=== PATIENT | female | born 1990 | race Caucasian/White ===

== ENCOUNTER 2023-12-07 14:27 | Inpatient (IN) | payer OTHER, SELFPAY ==
[2023-12-07] VITALS (33 sets, daily range): BP systolic 109–156; BP diastolic 54–108; PULSE 73–118; RESP 14–18; TEMP 36.7–37; O2SAT 91–100; BMI 31.6
--- NOTE | 2023-12-07 | PLAC_PTH ---
PATIENT: DASIA HERNANDEZ LOC: WP U#:[id number] AGE/SX: 33/F ROOM: WP009 RE12/07/[address]: Dr. Lyudmila Baltazar DO : 1990 BED: 1 DIS: 12/09/2023 SPEC #: [id number] RECD: 12/07/23 23:38 STATUS: ALYX HUMPHREY #: [id number] ALBERTO: 12/07/23 00:[address]: Lyudmila Baltazar DEPT: SURGICAL PATHOLOGY RECD BY: Julia Ray Tissues: Placenta, NOS Procedures: Surgery Specimen Level V HEADER OPERATION: section PRE-OP DIAGNOSIS: Primary section TISSUE SUBMITTED: Placenta MICROSCOPIC DIAGNOSIS Placenta: Placental disc - third trimester placenta (455 gm). Membranes - no pathologic diagnosis. Umbilical cord - three blood vessels and no pathologic diagnosis. SJ: 12/10/2023 MICROSCOPIC DESCRIPTION Slides are reviewed. GROSS DESCRIPTION SPECIMEN: PLACENTA / CLINICAL INFORMATION: A. Weight: 3.105 kg B. Gestational Age:41 weeks C. Sex: Male PLACENTAL WEIGHT (POST FIXATION): 455 gm PLACENTAL DIMENSIONS: 20.0 x 18.0 x 2.5 cm PLACENTAL SHAPE: Usual ovoid PLACENTAL WEIGHT FOR GESTATIONAL AGE: Within 10-99th percentile MEMBRANES - Present A. Insertion: Marginal B. Site of rupture from edge: 8.0 cm from edge of placental disc C. Color of membrane: Aguilar-clemente D. Abnormalities: None UMBILICAL CORD - Present A. Color: Aguilar-clemente B. Insertion: Paracentral C. Length: 38.0 cm D. Diameter: 1.2 cm E. Number of vessels: Three F. Abnormalities: None PLACENTAL DISC - Present A. Color of surface: Aguilar-clemente B. surface abnormalities: None C. Maternal cotyledons: Intact with minimal tears D. Attached retro placental clot: No clot E. Cut surface: Dark red and spongy F. Lesions: None G. Separate clot: Absent SECTIONS SUBMITTED: 6 cassettes 1. Membrane roll 2. Cord, maternal end 3. Cord, end 4. Placental disc, and maternal surfaces 5. Placental disc, and maternal surfaces 6. Placental disc, and maternal surfaces SJ/mr 12/09/2023 TC:4 CPT: 73978
[2023-12-07 14:21] LABS: ROM Internal Control Test YES-OK TO RESULT pt. (Internal QC)
[2023-12-07 14:22] LABS: ROM Patient Test POSITIVE (Negative)
[2023-12-07 14:23] LABS: Record Kit Lot#, ROM+ K1866
[2023-12-07] MEDS: Lactated Ringers 1,000 ML 50 ML IV (15:10)
[2023-12-07 15:36] LABS: Absolute Lymphocyte Count 2.52 X10^3/uL (0.83-4.51); Absolute Neutrophil Count 11.3 X10^3/uL (2.0-7.7); Basophil# 0.05 X10^3/uL; Basophil% 0.3 % (0-1); Eosinophil# 0.04 X10^3/uL; Eosinophils% 0.3 % (0-5); Hematocrit 39.5 % (37-47); Hemoglobin 13.2 g/dL (12.0-15.0); Lymphocyte # 2.52 X10^3/ul (0.83-4.51); Lymphocyte % 16.8 % (19-41); Mean Corp Hgb Conc 33.4 g/dL (32-36); Mean Corpuscular Hgb 30.3 pg (27.0-32.0); Mean Corpuscular Volume 90.6 fL (81-99); Mean Platelet Vol. 11.4 fl (6.2-12.0); Monocyte# 1.07 X10^3/uL; Monocyte% 7.1 % (0-10); NRBC Flagged by Analyzer 0 % (0-5); Neutrophil # 11.27 X10^3/uL (2.7-7.7); Platelet Count 261 K/mm3 (150-450); RBC Distribution Width CV 11.9 % (11.6-14.6); RBC Distribution Width SD 39.5 fl (35.1-43.9); Red Blood Count 4.36 M/mm3 (4.2-5.4)
[2023-12-07 15:44] LABS: Protein, Urine (Random) 6.6 mg/dL (<11.9); Protein:Creat Ratio 116 mg/g CRE (0-200)
[2023-12-07 15:46] LABS: AST(SGOT) 23 U/L (15-37); Alanine Aminotransfer ALT/SGPT 19 U/L (13-56); Creatinine, Serum 0.74 mg/dL (0.55-1.02); EST Glomerular Filtration Rate 97 mL/min (>60); Est Glom Filt Rate - Afr Amer 117 mL/min (>60); Estimated Creatinine Clearance 126.83 ml/min; Uric Acid 5.1 mg/dL (2.6-6.0)
[2023-12-07 16:07] LABS: Syphilis Antibodies Non-reactive
[2023-12-07] MEDS: Oxytocin 15 Units/NS 250ml 15 UNITS/250 ML IV.SOLN 2 UNITS IV (16:53)
[2023-12-07] MEDS: LACTATED RINGERS 500 ML 999 ML IV ×2 (17:10→18:20)
--- NOTE | 2023-12-07 17:23 | HP.PCM.OB_ITS ---
HPI - General General Date of Admission: 12/07/23 Date of Service: 12/07/23 Chief Complaint: SROM HPI Narrative DASIA HERNANDEZ, is a 33 F who presents with SROM. She ruptured for clear fluid at home around 9 AM today. Starting having irregular ctx's once she arrived to L&D. No bleeding. +FM. [facility] Medical History (Updated 12/07/23 @ 17:[address] Lyudmila Baltazar, DO) Asthma Home Medications ?Medication ?Instructions ?Recorded ?Last Taken ?Type calcium 250 mg tablet mg PO supplement 12/07/23 12/07/23 History docosahexaenoic acid PO vitamin 12/07/23 12/07/23 History famotidine 20 mg tablet (Pepcid) 20 mg PO DAILY heartburn 12/07/23 Unknown History ferrous sulfate 325 mg (65 mg 325 mg PO .daily iron 12/07/23 12/07/23 History iron) tablet (Iron (ferrous sulfate)) Allergy/AdvReac Type Severity Reaction Status Date / Time aspirin Allergy Severe Anaphylaxis Verified 12/07/23 14:31 Social History Smoking Status: Never smoker History Elective abortions Hx Para 0 Spontaneous abortions Hx # Term Pregnancies Ectopic pregnancies Hx # Pregnancies Multiple births # of living children NST FHR Rate Baby A Baseline: 140 Variability:: Moderate Accelerations:: 15 x 15 Decelerations:: None NST Reactive:: Yes FHR Category:: Category I Uterine Activity:: irregular Vital Signs Vital Signs Vital Signs: 12/07/23 13:49 12/07/23 13:49 12/07/23 14:04 Pulse Rate 77 Blood Pressure 151/73 H 156/82 H BP Systolic 151 156 BP Diastolic 73 82 12/07/23 14:04 12/07/23 14:20 12/07/23 14:20 Pulse Rate 93 76 Blood Pressure 148/76 H BP Systolic 148 BP Diastolic 76 12/07/23 16:46 12/07/23 16:46 Pulse Rate 96 Blood Pressure 154/84 H BP Systolic 154 BP Diastolic 84 Weight Weight: 202 lb Body Mass Index (BMI) 31.6 Labs Labs Labs: Blood Type O POSITIVE Antibody Screen NEGATIVE Hct 39.5 % (37-47) Hgb 13.2 g/dL (12.0-15.0) Syphilis Total Ab Non-reactive Assessment & Plan (1) 40 weeks gestation of : PLAN: ROM plus positive. Admit for SROM. - Start Pitocin per protocol - GBS negative - Plans epidural for pain control - Pelvis adequate and EFW < 4500 grams (2) SROM (spontaneous rupture of membranes): (3) History of asthma: (4) Elevated blood pressure reading: PLAN: - Pt reports being very anxious and having white coat syndrome - Denies symptoms of pre e - Pre e labs WNL - Cont to monitor - Possible gHTN but likely secondary to anxiety and pain
[2023-12-07] MEDS: 0.9% Normal Saline 250 ML IV.SOLN. 500 ML INTRA-UTER (18:57)
[2023-12-07] MEDS: Ondansetron 4 MG/2 ML Vial IV (19:08)
[2023-12-07] MEDS: Sodium Citrate/Citric Acid 30 ML UDC PO (19:27)
[2023-12-07] MEDS: Acetaminophen 500 MG Tablet PO (19:27)
[2023-12-07] MEDS: Cefazolin 2 GM in 0.9% Normal Saline (100mL Bag) 100 ML IV (19:38)
[2023-12-07] MEDS: Azithromycin 500 MG in Dextrose 5%-Water (250mL Bag) 250 ML 250 MG IV (19:48)
--- NOTE | 2023-12-07 20:45 | OP.PCM_ITS ---
Problems Associated Problem List Diagnoses (1) 40 weeks gestation of : (2) SROM (spontaneous rupture of membranes): (3) History of asthma: (4) Elevated blood pressure reading: (5) intolerance to labor, delivered, current hospitalization: Report of Operation Date of Procedure: 12/07/23 Pre-Operative Diagnosis: 40 week gestation, SROM, intolerance to labor Post-Operative Diagnosis: As above Surgery/Procedure Performed:: PLTCS via pfannenstiel incision Description of Surgical Findings:: VMI in cephalic presentation. Apgars 8, 9. Clear fluid. Normal appearing plac enta with 3 VC. Normal appearing uterus and bilateral adnexa. Surgeon: Lyudmila Baltazar export agent: Nohemy ROGERS Type of Anesthesia: Epidural Special Medications: None Specimen's removed: Placenta Drains: Robledo Estimated Blood Loss (mL): 500 Fluids Replaced: 1100 mL Description of Procedure: Indications: Patient presented to labor and delivery at 40 weeks gestation with SROM for clear fluid at home at 1 cm dilated. She was started on Pitocin. She progressed to 4 cm dilated. She began having recurrent variable decelerations, and resuscitative measures including amnioinfusion were started. The decelerations continued despite resuscitative measures, followed by minimal variability. The decision was made to proceed with section given intolerance to labor remote from delivery. Procedure: Patient was taken to the operating room where epidural anesthesia was found to be adequate. She was prepped and draped in the dorsal supine position with a leftward tilt. A Pfannenstiel skin incision was made using a scalpel and this was carried down to the underlying layer of fascia. The fascia was incised in the midline. The fascial incision was extended bluntly with traction. The fascia was dissected off the rectus muscles cephalad. The rectus muscles were in the midline. The peritoneum was entered bluntly with good visual ization of the bladder. The peritoneal incision was extended bluntly with lateral traction. A bladder blade was inserted. A low transverse incision was made on the uterus with a scalpel. The uterine incision was extended with traction both cephalad and caudad. A vigorous viable male infant was delivered in cephalic presentation without any traction, force, or delay and the head was delivered in a flexed position. The cord was clamped and cut after a slight delay and the was handed off to the awaiting nursery staff. The placenta was removed with manual extraction. The uterus was cleared of all clot and debris. The uterus was exteriorized. The uterine incision was closed with 1-0 Vicryl in a running locked fashion. Hemostasis was noted. A 4 x 2 cm hematoma was noted at the left side of the hysterotomy along the lower uterine segment with no extension into the broad ligament. Pressure was applied for 2 minutes. After pressure, the hematoma was reassessed and noted to be stable in size. The uterus was placed back into the abdomen. Hemostasis was again noted. The hematoma was again monitored after several minutes and noted to be stable in size. The peritoneum was closed with 3-0 Vicryl. The subfascial space was noted to be hemostatic. The fascia was closed with STRATAFIX in a running fashion. The subcutaneous space was irrigated and noted to be hemostatic. The subcutaneous space was reapproximated with 3-0 Vicryl in a running fashion. The skin was closed with 4 Monocryl in a subcuticular fashion. Steri-Strips and a dressing were placed. Instrument, sponge, needle counts were correct and the patient was taken to the recovery room in stable condition. Ana ROGERS was present and assisted with prepping the patient, delivery of the , and closure. Grafts/Implants Used: None Procedure Start Time: 19:43 Complications None Admit VTE Documentation VTE Present on Admission: No VTE Mechan Device Prophylaxis: SCD's
[2023-12-07] MEDS: Oxytocin 15 Units/NS 250ml 15 UNITS/250 ML IV.SOLN 83 UNITS IV (21:00)
--- NOTE | 2023-12-07 21:28 | NURSING ---
epidural catheter removed at [address] Lino, blue tip intact.
[2023-12-07] MEDS: Ketorolac 30 MG/ML Syringe IV (22:09)
--- NOTE | 2023-12-07 22:56 | NURSING ---
catheter charted in connect by Cedric PEREZ
[2023-12-07 23:45] LABS: Pathology Specimen OB SEE PATHOLOGY REPORT
[2023-12-07] MEDS: Lactated Ringers 1,000 ML 100 ML IV (23:59)
[2023-12-08] VITALS (9 sets, daily range): BP systolic 120–132; BP diastolic 62–77; PULSE 65–88; RESP 12–20; TEMP 36.6–37.1; O2SAT 97–100
[2023-12-08] MEDS: Acetaminophen 500 MG Tablet 1000 MG PO ×4 (02:17→20:12)
[2023-12-08] MEDS: Ketorolac 30 MG/ML Syringe IV ×3 (04:29→16:03)
--- NOTE | 2023-12-08 07:15 | NURSING ---
report given to Kaylene Solomon RN who is assuming care of pt at this time, all late entry charting due to [facility] downtime
[2023-12-08 09:36] LABS: Hematocrit 31.9 % (37-47); Hemoglobin 10.5 g/dL (12.0-15.0); Red Blood Count 3.46 M/mm3 (4.2-5.4); White Blood Count 17.4 K/mm3 (4.4-11.0)
[2023-12-08 09:37] LABS: Mean Corp Hgb Conc 32.9 g/dL (32-36); Mean Corpuscular Hgb 30.3 pg (27.0-32.0); Mean Corpuscular Volume 92.2 fL (81-99); Mean Platelet Vol. 11.5 fl (6.2-12.0); Platelet Count 206 K/mm3 (150-450); RBC Distribution Width CV 12.2 % (11.6-14.6); RBC Distribution Width SD 40.9 fl (35.1-43.9); Scan Indicated on CBC? Y/N NO
[2023-12-08] MEDS: Senna/Docusate Sodium 1 Tablet PO (10:03)
[2023-12-08] MEDS: 0.9% Saline Lock 10 ML Syringe IV ×2 (10:05→16:03)
--- NOTE | 2023-12-08 17:57 | PCM.PN.OB ---
Subjective Subjective Doing well per patient and nursing staff. Ambulating and taking PO without difficulty. Voiding and passing flatus. Pain controlled. , services for assistance. Denies headache, visual changes, chest pain, shortness of breath, leg pain or increased bleeding. Lochia normal. Objective Data Objective Data Vital Signs: Vital Signs Temp Pulse Resp BP Pulse Ox O2 Del Method 97.9 F 74 16 120/76 98 Room Air 12/08/23 16:08 12/08/23 16:08 12/08/23 16:08 12/08/23 16:08 12/08/23 16:08 12/08/23 16:08 Oxygen Delivery Method Room Air Weight: 202 lb Body Mass Index (BMI) 31.6 Intake & Output: Intake and Output for Last 24 Hours 12/06/23 12/07/23 12/08/23 23:59 23:59 23:59 Intake Total 1836.10 / 1836.10 643.33 / 643.33 Output Total 800 / 800 600 / 600 Balance 1036.10 / 1036.10 43.33 / 43.33 Lab / Micro Data 12/08/23 04:35 12/07/23 15:10 Labs: Laboratory Results - last 24 hr 12/08/23 04:35: WBC 17.4 H, RBC 3.46 L, Hgb 10.5 L, Hct 31.9 L, MCV 92.2, MCH 30.3, MCHC 32.9, RDW Std Deviation 40.9, RDW Coeff of Alec 12.2, Plt Count 206, MPV 11.5 ROS Constitutional Constitutional: Reports systems reviewed and no addt'l complaints, except as documented; Denies headache(s) Eyes Eyes: Denies acute decrease in peripheral vision, blurry vision or change in vision ENT HEENT: Reports systems reviewed and no addt'l complaints, except as documented Cardiovascular Cardiovascular: Denies chest pain or dizziness Respiratory/Chest Respiratory/Chest: Denies cough, dyspnea, dyspnea on exertion, shortness of breath at rest or shortness of breath with exertion Gastrointestinal Gastrointestinal: Denies abdominal pain, diarrhea, nausea or vomiting Genitourinary Genitourinary: Denies abdominal discomfort Musculoskeletal Musculoskeletal: Denies limited range of motion Integumentary Integumentary: Reports systems reviewed and no addt'l complaints, except as documented Neurologic Neurologic: Reports systems reviewed and no addt'l complaints, except as documented Psychiatric Psychiatric: Reports systems reviewed and no addt'l complaints, except as documented Endocrine Endocrinology: Reports systems reviewed and no addt'l complaints, except as documented Hematologic/Lymphatic Hematologic/Lymphatic: Reports systems reviewed and no addt'l complaints, except as documented Allergic/Immunologic Allergic/Immunologic: Reports systems reviewed and no addt'l complaints, except as documented Physical Exam Const alert and oriented x3 General Appearance: cooperative Orientation / Consciousness: awake, oriented to person, oriented to place and oriented to time Exam Limitations: no limitations HEENT normocephalic Head and Scalp: normal to inspection, normocephalic and atraumatic Face and Sinus: normal facial exam Eyes General Eye: normal appearance of both eyes Neck full ROM Chest Chest: symmetrical chest wall rise Resp normal respiratory effort and normal air movement Auscultation: clear to auscultation bilaterally Cardio regular rate, regular rhythm, S1 normal heart sound, S2 normal heart sound, no murmurs, no rub, no gallops and no clicks GI normal to inspection, nondistended, normoactive bowel sounds and non-tender GI Narrative: Dressing dry and intact. appearance of the vagina normal Bladder / Kidney Exam: no CVA tenderness Back/Spine normal ROM Extremity normal to inspection and full ROM Skin no rashes or lesions noted Neuro oriented x3, CN's II-XII intact bilaterally and moves all extremities Sensorium / Orientation: awake, alert and oriented to person Motor Exam: clonus absent Deep Tendon Reflexes: Rt Patellar (L4): 2+ and Lt Patellar (L4): 2+ Assessment & Plan (1) intolerance to labor, delivered, current hospitalization: (2) Delivery by section: PLAN: Plan 1) Vitals stable 2) Pain management 3) D/C home tomorrow
[2023-12-08] MEDS: Ibuprofen 600 MG Tablet PO (23:57)
[2023-12-09 01:43] VITALS: BP 125/76; PULSE 77; RESP 18; TEMP 36.7; O2SAT 97
[2023-12-09] MEDS: Acetaminophen 500 MG Tablet 1000 MG PO ×2 (02:32→08:34)
[2023-12-09] MEDS: Ibuprofen 600 MG Tablet PO (06:33)
[2023-12-09 07:59] VITALS: BP 121/77; PULSE 83; RESP 17; TEMP 36.5; O2SAT 98
--- NOTE | 2023-12-09 08:41 | PCM.PN.OB ---
Subjective Subjective Doing well. Pain controlled. Voiding without difficulty. Breast feeding well. Objective Data Objective Data Vital Signs: Vital Signs Temp Pulse Resp BP Pulse Ox O2 Del Method 97.7 F L 83 17 121/77 H 98 Room Air 12/09/23 07:59 12/09/23 07:59 12/09/23 07:59 12/09/23 07:59 12/09/23 07:59 12/09/23 07:59 Oxygen Delivery Method Room Air Weight: 91.626 kg Body Mass Index (BMI) 31.6 Intake & Output: Intake and Output for Last 24 Hours 12/07/23 12/08/23 12/09/23 23:59 23:59 23:59 Intake Total 1836.10 / 1836.10 643.33 / 643.33 Output Total 800 / 800 600 / 600 Balance 1036.10 / 1036.10 43.33 / 43.33 Lab / Micro Data 12/08/23 04:35 12/07/23 15:10 Labs: Laboratory Results - last 24 hr 12/08/23 04:35: WBC 17.4 H, RBC 3.46 L, Hgb 10.5 L, Hct 31.9 L, MCV 92.2, MCH 30.3, MCHC 32.9, RDW Std Deviation 40.9, RDW Coeff of Alec 12.2, Plt Count 206, MPV 11.5 Physical Exam Const alert General Appearance: cooperative GI GI Narrative: soft, moderate distention, fundus firm, appropriately tender. Abdominal bandage clean dry and intact Assessment & Plan (1) Delivery by section: (2) intolerance to labor, delivered, current hospitalization: (3) Elevated blood pressure reading: PLAN: Plan Discharge home today
--- NOTE | 2023-12-09 08:58 | PCM.DC.SUM ---
Providers Date of Admission: 12/07/23 Date of Discharge: 12/09/23 Reason For Visit: PRIMARY C SECTION Diagnosis Discharge Diagnosis (1) Delivery by section: Status: Acute (2) intolerance to labor, delivered, current hospitalization: Status: Acute Code(s): O77.9 - Labor and delivery complicated by stress, unspecified (3) Elevated blood pressure reading: Status: Acute Code(s): R03.0 - Elevated blood-pressure reading, without diagnosis of hypertension Plan Discharge home today Medications at Discharge Home Medications calcium 250 mg tablet mg PO supplement 12/07/23 docosahexaenoic acid PO vitamin 12/07/23 famotidine 20 mg tablet (Pepcid) 20 mg PO DAILY heartburn 12/07/23 ferrous sulfate 325 mg (65 mg iron) tablet (Iron (ferrous sulfate)) 325 mg PO .daily iron 12/07/23 Hospital Course Operations section Procedures None Summary of Care Provided Minutes Spent on Discharge: 21 Hospital Course: Admitted for SROM. Primary c/s for NRFHR. Uncomplicated . Breast feeding Physical Exam Const alert General Appearance: cooperative GI GI Narrative: soft, moderate distention, fundus firm, appropriately tender. Abdominal bandage clean dry and intact Weight / BMI Weight Weight: 91.626 kg Body Mass Index (BMI) 31.6 ABG / Lab / Microbiology Data 12/08/23 04:35 12/07/23 15:10 Laboratory: Laboratory Results - last 24 hr 12/08/23 04:35: WBC 17.4 H, RBC 3.46 L, Hgb 10.5 L, Hct 31.9 L, MCV 92.2, MCH 30.3, MCHC 32.9, RDW Std Deviation 40.9, RDW Coeff of Alec 12.2, Plt Count 206, MPV 11.5 D/C Instructions Discharge Diet: No restrictions May resume sexual activity in: 4-6 weeks Lifting Restrictions: 20 pounds Additional Activity Instructions: Nothing in the vagina for 4-6 weeks. You may return to work/school in 6 weeks. Call your doctor if your incision/area has: Continuous Slow Oozing, Sudden Increased Bleeding, Increased Pain/ Swelling, Increased Redness and Foul Smelling Discharge Call your doctor if you observe: Fever of 101 or Higher and Using more than 1 pad per hour (for 2 hours) Suture Line Care: Avoid Pulling/Pushing and Avoid Pinching/Bending Cleanse incision/area with: Keep Dressing Clean & Dry Please Follow Up With: Analia More MD When: Call to make an appointment for an incision check in 1-2 [phone]. You will need a post check in 6 weeks. Meaningful Use Info Meaningful Use Meaningful Use Diagnoses (Choose all that apply): None applicable Ischemic Stroke Statin Dosing Therapy Reference: STATIN DOSE THERAPY REFERENCE: * Patients > 75 years receive moderate or high dose statin therapy. * Patients 75 years or YOUNGER should receive HIGH intensity statin dose unless contraindicated. You will be required to document reason for non-treatment if statin daily dose does not meet guidelines. HIGH DOSE STATIN THERAPY DAILY Atorvastatin > than or = to 40 mg Rosuvastatin > than or = to 20 mg Amlodipine + Atorvastatin > than or = to 2.5/40 mg Ezetimibe + Simvastatin 10/80 mg Simvastatin 80mg Discharge Plan Admission Admit Date/Time: 12/07/23 14:27 Primary Reason for Your Visit: SROM Attending Provider: Lyudmila Baltazar Instructions Patient Instructions: After a Discharge Orders/Prescriptions Prescriptions: Continued docosahexaenoic acid [ DHA] PO famotidine [Pepcid] 20 mg tablet 20 mg PO DAILY ferrous sulfate [Iron (ferrous sulfate)] 325 mg (65 mg iron) tablet 325 mg PO .daily calcium 250 mg tablet PO Disposition Disposition (needs filled in before D/C Order can be placed): Home, Self Care
== END 2023-12-09 11:45 | disposition home or self-care (01) | DRG 788 ==
LOC: WPOUT 14:34 → WP 14:34
PROVIDERS: Admitting Provider Obstetrics & Gynecology; Referring Provider Obstetrics & Gynecology; Visit Provider Obstetrics & Gynecology
DX: O99.892 Other specified diseases and conditions complicating childbirth (principal); O76 Abnormality in fetal heart rate and rhythm complicating labor and delivery; R03.0 Elevated blood-pressure reading, without diagnosis of hypertension; Z3A.40 40 weeks gestation of pregnancy; Z37.0 Single live birth; O90.2 Hematoma of obstetric wound
CPT/HCPCS: 36415; 59025; 59050; 82565; 82570; 84112; 84156; 84450; 84460; 84550; 85025; 85027; 86780; 86850; 86900; 86901; 88307; 99221; J7050; J7120; A4216; G0378; J2405